=== PATIENT | male | born 1960 | race Caucasian/White ===

== ENCOUNTER → 2022-10-10 | Outpatient (CLI) | payer BC ==
--- NOTE | 2022-10-10 16:09 | DIREP ---
PROCEDURE:XRAY KNEE 3 VIEWS-RT COMPARISON:None. INDICATIONS:M25.561 PAIN IN RIGHT KNEE FINDINGS: BONES:No fracture. Osteophyte along the superior aspect of the patella JOINTS:Normal. SOFT TISSUES:Normal. OTHER:No additional findings. CONCLUSION:Mild degenerative changes. No acute findings Dictated by: Patric Erazo MD on 10/10/2022 at 04:07 PM
== END | disposition home or self-care (01) ==
LOC: RAD 15:18
PROVIDERS: ATTEND Student in an Organized Health Care Education/Training Program
DX: M17.11 Unilateral primary osteoarthritis, right knee (principal); M25.761 Osteophyte, right knee
CPT/HCPCS: 73562-RT

== ENCOUNTER → 2023-05-31 | Outpatient (CLI) | payer BC | END | disposition home or self-care (01) | LOC: RAD 12:22 | DX: M79.605 Pain in left leg (principal) | CPT/HCPCS: 93922; 93925; 93970 ==